=== PATIENT | male | born 1960 | race Caucasian/White ===

== ENCOUNTER 2024-09-26 12:05 | Outpatient (CLI) | payer OTHER ==
[~2024-09-26] VITALS: Ht 172.7 cm; Wt 54.4 kg
[2024-09-26] MEDS: albuterol 2.5 MG/3 ML nebule NEB ONE (13:03)
[2024-09-26 13:04] VITALS: PULSE 77; RESP 15; O2SAT 97
[2024-09-26 13:16] VITALS: PULSE 78; RESP 16
== END 2024-09-26 23:59 | disposition home or self-care (01) ==
LOC: RT 12:05
PROVIDERS: ATTEND Chiropractor
DX: R06.02 Shortness of breath (principal)
CPT/HCPCS: 94060; 94760